=== PATIENT | male | born 1985 | race Caucasian/White ===

== ENCOUNTER 2019-12-14 05:52 | Emergency (ER) | payer OTHER ==
[~2019-12-14] VITALS: Ht 188 cm; Wt 115.7 kg
[2019-12-14 06:12] VITALS: BP_SYST 135
--- NOTE | 2019-12-14 06:15 | NUR ---
Patient triaged and placed in waiting room. VSS and patient appears in no acute distress at this time. Accompanied by family, awaiting available bed, and MD notified of need for MSE.
--- NOTE | 2019-12-14 06:38 | NUR ---
Pt ambulatory to bed 3 for evaluation
--- NOTE | 2019-12-14 07:15 | NUR ---
Patient presents to ER C/O hemorrhoid. Patient A&Ox4, ambulatory to ER, afebrile, skin pink and warm, denies pain, denies n/v/d, rectal bleeding controlled. PT states "hemmorrhoid popped this morning" Pt states he was seen in at Saturday, given topical treatment. Patient reports HX of hemmorhoid
--- NOTE | 2019-12-14 07:25 | NUR ---
ER Dr. Fraser at bedside examining patient.
[2019-12-14 08:27] VITALS: BP_SYST 137
--- NOTE | 2019-12-14 08:29 | NUR ---
Patient given written and verbal discharge instructions and verbalizes understanding. ER MD discussed with patient the results and treatment provided. Patient in stable condition. ID arm band removed.. No Rx given. Patient educated on pain management and to follow up with PMD. Pain Scale 0/10 . Opportunity for questions provided and answered. Medication side effect fact sheet provided.
== END 2019-12-14 08:27 | disposition home or self-care (01) ==
LOC: SED 05:52
DX: K64.4 Residual hemorrhoidal skin tags (principal)
CPT/HCPCS: 99281